=== PATIENT | male | born 1955 | race Caucasian/White ===

== ENCOUNTER 2022-06-13 08:14 | Inpatient (IN) ==
[2022-06-13 09:39] LABS: Basophils # 0.1 10*3/uL (0.0-0.2); Basophils % 0.7 % (0.0-0.8); Eosinophils # 0.3 10*3/uL (0.0-0.87); Eosinophils % 2.6 % (0.00-10.9); Hematocrit 44.7 VOL% (42.0-52.0); Hemoglobin 14.7 GM/DL (14.0-18.0); Immature Granulocytes % 0.5 %; Immature Granulocytes Absolute 0.05 #; Lymphocytes # 1.8 10*3/uL (1.4-4.0); Lymphocytes % 17.2 % (21.2-54.2); Mean Corpuscular HGB Conc 32.9 GM/DL (32-36); Mean Corpuscular Volume 92.5 FL (87-102); Monocytes # 0.6 10*3/uL (0.11-0.8); Monocytes % 5.9 % (1.7-12.7); Neutrophils % 73.1 % (38.7-73.9); Platelet Count 287 T/CUMM (130-400); Red Blood Count 4.83 MC/CUMM (3.8-5.5); Red Cell Distribution Width 12.2 % (9.3-17.3); White Blood Count 10.4 T/CUMM (4-12)
[2022-06-13 09:41] LABS: Mucus,Urine Occasional /LPF (Occasional); RBC,Urine 1 /HPF (0-4)
[2022-06-13 09:42] LABS: Bilirubin,Urine Negative (Negative); Blood, Urine Negative (Negative); Glucose,Urine (UA) 500 mg/dL (Negative); Ketones,Urine Negative (Negative); Nitrite,Urine Negative (Negative); Protein,Urine Negative (Negative); Urine Appearance Clear (Clear); Urine Color Yellow (Yellow); Urine Specific Gravity 1.015 (1.001-1.035); Urine Urobilinogen 0.2 eU/dL (<2.0); Urine pH 5.5 (4.5-8.0)
[2022-06-13 09:56] LABS: Blood Urea Nitrogen 24 MG/DL (7-18); Calcium 9.3 MG/DL (8.5-10.1); Carbon Dioxide 26 MMOL/L (21-32); Chloride 103 MMOL/L (98-107); Glucose 239 MG/DL (74-106); Osmolality,Calculated 284.8 MOS/KG (273-304); Potassium 4.3 MMOL/L (3.5-5.1); Sodium 137 MMOL/L (136-145)
[2022-06-13] MEDS ORDERED: SODIUM CHLORIDE 0.9% 1,000 ML IV STA ×2 (10:02→10:05)
[2022-06-13] MEDS ORDERED: ONDANSETRON 4 MG/2 ML VIAL IV STA (10:02)
[2022-06-13] MEDS ORDERED: MORPHINE 2 MG/1 ML SYRINGE IV STA ×2 (10:02→11:56)
[2022-06-13] MEDS ORDERED: cefTRIAXone 1,000 MG in SODIUM CHLORIDE 0.9% 100 ML IV STA (10:11)
[2022-06-13] MEDS ORDERED: ONDANSETRON 4 MG/2 ML VIAL IV PRN (11:18)
[2022-06-13] MEDS ORDERED: GLUCAGON 1 MG VIAL IM PRN (11:18)
[2022-06-13] MEDS ORDERED: LACTULOSE 20 GM/30 ML UDCUP PO PRN (11:18)
[2022-06-13] MEDS ORDERED: ACETAMINOPHEN 325 MG TABLET PO PRN (11:18)
[2022-06-13] MEDS ORDERED: MORPHINE 2 MG/1 ML SYRINGE IV PRN (11:29)
[2022-06-13] MEDS ORDERED: DEXTROSE 10% 250 ML BAG IV PRN (11:44)
[2022-06-13] MEDS: INSULIN LISPRO 100 UNIT/ML SUBCUT SCH ×3 (11:47→20:48)
[2022-06-13] MEDS: ENOXAPARIN 40 MG/0.4 ML SYRINGE SUBCUT SCH (11:53)
[2022-06-13] MEDS ORDERED: INFLUENZA VIRUS VACCINE 0.5 ML SYRINGE IM ONE (12:10)
[2022-06-13] MEDS: SODIUM CHLORIDE 0.9% 1,000 ML IV SCH (12:15)
[2022-06-13] MEDS: VANCOMYCIN INJ 1,500 MG in SODIUM CHLORIDE 0.9% 500 ML IV SCH (16:07)
[2022-06-14] MEDS: SODIUM CHLORIDE 0.9% 1,000 ML IV SCH ×4 (00:04→21:27)
[2022-06-14 05:24] LABS: Basophils # 0.1 10*3/uL (0.0-0.2); Basophils % 0.9 % (0.0-0.8); Eosinophils # 0.4 10*3/uL (0.0-0.87); Eosinophils % 6.3 % (0.00-10.9); Hemoglobin 13.1 GM/DL (14.0-18.0); Immature Granulocytes % 0.2 %; Immature Granulocytes Absolute 0.01 #; Lymphocytes # 2.1 10*3/uL (1.4-4.0); Mean Corpuscular HGB Conc 33.6 GM/DL (32-36); Mean Platelet Volume 8.8 FL (9.6-12.0); Monocytes # 0.6 10*3/uL (0.11-0.8); Monocytes % 9.9 % (1.7-12.7); Neutrophils % 47.7 % (38.7-73.9); Platelet Count 248 T/CUMM (130-400); Red Blood Count 4.24 MC/CUMM (3.8-5.5); Red Cell Distribution Width 12.4 % (9.3-17.3); White Blood Count 5.9 T/CUMM (4-12)
[2022-06-14 05:51] LABS: Alanine Aminotransferase 20 U/L (16-61); Albumin 3.3 G/DL (3.4-5.0); Alkaline Phosphatase 69 U/L (45-117); Aspartate Amino Transferase 18 U/L (0-37); Bilirubin,Total < 0.39 MG/DL (0.20-1.00); Blood Urea Nitrogen 20 MG/DL (7-18); Calcium 8.5 MG/DL (8.5-10.1); Carbon Dioxide 24 MMOL/L (21-32); Chloride 110 MMOL/L (98-107); Cholesterol 98 MG/DL (50-200); Glucose 108 MG/DL (74-106); HDL Cholesterol 29 MG/DL (40-60); Osmolality,Calculated 278.7 MOS/KG (273-304); Risk Ratio 3.38; Sodium 138 MMOL/L (136-145); Total Protein 6.7 G/DL (6.4-8.2); Triglycerides 134 MG/DL (2-150); VLDL Cholesterol 26.8 MG/DL
[2022-06-14] MEDS: INSULIN LISPRO 100 UNIT/ML SUBCUT SCH ×4 (08:03→21:25)
[2022-06-14] MEDS ORDERED: cefTRIAXone 1,000 MG in SODIUM CHLORIDE 0.9% 100 ML IV SCH (10:00)
[2022-06-14] MEDS: ASPIRIN CHEW 81 MG TABLET PO SCH (10:42)
[2022-06-14] MEDS: VANCOMYCIN INJ 1,500 MG in SODIUM CHLORIDE 0.9% 500 ML IV SCH (10:43)
[2022-06-14] MEDS: PANTOPRAZOLE 40 MG TABLET PO SCH (10:43)
[2022-06-14] MEDS: HYDROmorphone 1 MG/1 ML SYRINGE IV PRN (10:43)
[2022-06-14] MEDS: PIPERACILLIN/TAZOBACTAM 3,375 MG in SODIUM CHLORIDE 0.9% 100 ML IV SCH ×2 (15:20→22:12)
[2022-06-14] MEDS: ENOXAPARIN 40 MG/0.4 ML SYRINGE SUBCUT SCH (15:20)
[2022-06-15] MEDS: VANCOMYCIN INJ 1,500 MG in SODIUM CHLORIDE 0.9% 500 ML IV SCH ×2 (02:58→21:14)
[2022-06-15 05:17] LABS: Basophils # 0.1 10*3/uL (0.0-0.2); Basophils % 0.9 % (0.0-0.8); Eosinophils # 0.4 10*3/uL (0.0-0.87); Eosinophils % 7.7 % (0.00-10.9); Hematocrit 39.9 VOL% (42.0-52.0); Hemoglobin 13.3 GM/DL (14.0-18.0); Immature Granulocytes % 0.2 %; Immature Granulocytes Absolute 0.01 #; Lymphocytes # 2.1 10*3/uL (1.4-4.0); Lymphocytes % 37.6 % (21.2-54.2); Mean Corpuscular HGB Conc 33.3 GM/DL (32-36); Mean Corpuscular Volume 91.9 FL (87-102); Mean Platelet Volume 8.9 FL (9.6-12.0); Monocytes # 0.5 10*3/uL (0.11-0.8); Monocytes % 9.4 % (1.7-12.7); Neutrophils % 44.2 % (38.7-73.9); Platelet Count 248 T/CUMM (130-400); Red Blood Count 4.34 MC/CUMM (3.8-5.5); Red Cell Distribution Width 12.2 % (9.3-17.3); White Blood Count 5.6 T/CUMM (4-12)
[2022-06-15 05:34] LABS: Calcium 8.6 MG/DL (8.5-10.1); Potassium 4.2 MMOL/L (3.5-5.1)
[2022-06-15] MEDS: SODIUM CHLORIDE 0.9% 1,000 ML IV SCH ×3 (06:01→19:30)
[2022-06-15] MEDS: PIPERACILLIN/TAZOBACTAM 3,375 MG in SODIUM CHLORIDE 0.9% 100 ML IV SCH ×3 (06:35→23:40)
[2022-06-15] MEDS ORDERED: CLINDAMYCIN INJ 900 MG/50 ML PREMIX IV ONE (07:18)
[2022-06-15] MEDS ORDERED: fentaNYL 100 MCG/2 ML VIAL ONE (08:55)
[2022-06-15] MEDS ORDERED: MIDAZOLAM 2 MG/2 ML VIAL ONE (08:55)
[2022-06-15] MEDS ORDERED: propofoL 200 MG/20 ML VIAL IV ONE (08:55)
[2022-06-15] MEDS ORDERED: LIDOCAINE 2% 5 ML VIAL ONE (08:55)
[2022-06-15] MEDS ORDERED: LIDOCAINE 2%/EPI 20 ML VIAL ONE (09:01)
[2022-06-15] MEDS ORDERED: BUPIVACAINE MPF 0.25% 10 ML VIAL ONE (09:01)
[2022-06-15] MEDS ORDERED: LACTATED RINGERS 1,000 ML IV SCH (09:30)
[2022-06-15] MEDS ORDERED: ePHEDrine 50 MG/ML VIAL ONE (09:42)
[2022-06-15] MEDS ORDERED: SEVOFLURANE 1 UNIT/15 MINUTE INH ONE (10:01)
[2022-06-15] MEDS: PANTOPRAZOLE 40 MG TABLET PO SCH (11:16)
[2022-06-15] MEDS: ASPIRIN CHEW 81 MG TABLET PO SCH (11:16)
[2022-06-15] MEDS: INSULIN LISPRO 100 UNIT/ML SUBCUT SCH ×4 (11:16→21:14)
[2022-06-15] MEDS: ENOXAPARIN 40 MG/0.4 ML SYRINGE SUBCUT SCH (15:42)
[2022-06-16 04:52] LABS: Basophils % 0.8 % (0.0-0.8); Eosinophils # 0.4 10*3/uL (0.0-0.87); Eosinophils % 7.9 % (0.00-10.9); Hematocrit 38.9 VOL% (42.0-52.0); Hemoglobin 12.8 GM/DL (14.0-18.0); Immature Granulocytes % 0.2 %; Immature Granulocytes Absolute 0.01 #; Lymphocytes # 1.7 10*3/uL (1.4-4.0); Lymphocytes % 36.2 % (21.2-54.2); Mean Corpuscular HGB Conc 32.9 GM/DL (32-36); Mean Corpuscular Volume 93.5 FL (87-102); Mean Platelet Volume 8.8 FL (9.6-12.0); Monocytes # 0.4 10*3/uL (0.11-0.8); Monocytes % 7.9 % (1.7-12.7); Platelet Count 237 T/CUMM (130-400); Red Blood Count 4.16 MC/CUMM (3.8-5.5); Red Cell Distribution Width 12.3 % (9.3-17.3); White Blood Count 4.8 T/CUMM (4-12)
[2022-06-16 05:26] LABS: Folate 14.69 NG/ML (5.38-24.0); Vitamin B12 792 PG/ML (211-911)
[2022-06-16] MEDS: PIPERACILLIN/TAZOBACTAM 3,375 MG in SODIUM CHLORIDE 0.9% 100 ML IV SCH (05:56)
[2022-06-16 07:50] LABS: Sedimentation Rate-Westergren 64 MM/HR (0-20)
[2022-06-16] MEDS: LEVOFLOXACIN 750 MG TABLET PO SCH (09:27)
[2022-06-16] MEDS: ASPIRIN CHEW 81 MG TABLET PO SCH (09:27)
[2022-06-16] MEDS: PANTOPRAZOLE 40 MG TABLET PO SCH (09:27)
[2022-06-16] MEDS: INSULIN LISPRO 100 UNIT/ML SUBCUT SCH ×4 (09:28→20:44)
[2022-06-16] MEDS: ENOXAPARIN 40 MG/0.4 ML SYRINGE SUBCUT SCH (12:16)
[2022-06-16] MEDS: HYDROmorphone 1 MG/1 ML SYRINGE IV PRN (20:50)
[2022-06-17] MEDS: HYDROmorphone 1 MG/1 ML SYRINGE IV PRN ×3 (01:00→08:47)
[2022-06-17 05:01] LABS: Basophils # 0.1 10*3/uL (0.0-0.2); Basophils % 1.1 % (0.0-0.8); Eosinophils # 0.4 10*3/uL (0.0-0.87); Eosinophils % 5.8 % (0.00-10.9); Hematocrit 40.1 VOL% (42.0-52.0); Hemoglobin 13.2 GM/DL (14.0-18.0); Immature Granulocytes % 0.3 %; Immature Granulocytes Absolute 0.02 #; Lymphocytes % 32.9 % (21.2-54.2); Mean Corpuscular HGB Conc 32.9 GM/DL (32-36); Mean Corpuscular Volume 93.3 FL (87-102); Mean Platelet Volume 8.9 FL (9.6-12.0); Monocytes # 0.6 10*3/uL (0.11-0.8); Monocytes % 9.2 % (1.7-12.7); Neutrophils % 50.7 % (38.7-73.9); Platelet Count 252 T/CUMM (130-400); Red Cell Distribution Width 12.4 % (9.3-17.3); White Blood Count 6.2 T/CUMM (4-12)
[2022-06-17 05:22] LABS: Calcium 8.8 MG/DL (8.5-10.1); Osmolality,Calculated 286.3 MOS/KG (273-304); Potassium 4.2 MMOL/L (3.5-5.1)
[2022-06-17] MEDS: PANTOPRAZOLE 40 MG TABLET PO SCH (09:12)
[2022-06-17] MEDS: LEVOFLOXACIN 750 MG TABLET PO SCH (09:12)
[2022-06-17] MEDS: ASPIRIN CHEW 81 MG TABLET PO SCH (09:12)
[2022-06-17] MEDS: INSULIN LISPRO 100 UNIT/ML SUBCUT SCH (09:13)
[2022-06-17 12:46] VITALS: BP 126/77
[2022-06-19 11:19] LABS: Hemoglobin A1 (Alkaline) 97.7 % (96.5-98.5); Hemoglobin A2 (Alkaline) 2.3 % (1.5-3.5)
== END 2022-06-17 11:53 | disposition home or self-care (01) | DRG 240 ==
LOC: N.ED 08:14 → SUATTDRO 11:18 → N.EDINP 11:18 → N.3E 14:58
PROVIDERS: ADMIT Family Medicine; ATTEND Internal Medicine